=== PATIENT | female | born 1960 | race Hispanic/Latino ===

== ENCOUNTER 2017-01-19 15:47 | Emergency (ER) | payer OTHER, SELFPAY ==
[2017-01-19] MEDS ORDERED: Metoclopramide HCl 10 MG/2 ML VIAL ONE (17:27)
[2017-01-19] MEDS ORDERED: Dexamethasone 4 mg/ml Vial ONE (17:27)
[2017-01-19 17:28] LABS: Bilirubin Negative (Negative); Blood, Urine Negative (Negative); Glucose, Urine (Dipstick) Negative (Negative); Ketone, Urine Negative (Negative); Nitrite Negative (Negative); Protein, Urine (Dipstick) Negative (Neg-Trace); Urobilinogen 0.2 mg/dL (0.2-1.0)
[2017-01-19 17:30] LABS: Bacteria/HPF 4+ HPF (None Seen); Hyaline Casts/LPF 7-10 HYALINE CAST LPF (0-3 Hyaline); WBC/HPF 0-3 HPF (0-3)
[2017-01-19 17:38] LABS: Amphetamine Not Detected (NotDetected); Methadone Not Detected (NotDetected); Methamphetamine Not Detected (NotDetected)
[2017-01-19 17:41] LABS: RBC/HPF 0-3 HPF (0-3); Yeast-All Forms 1+ HPF (None Seen)
[2017-01-19 18:31] LABS: #Basophils 0.1 thou/uL (0.0-0.2); #Eosinphils 0.9 thou/uL (0.0-0.7); #Lymphocytes 4.9 thou/uL (1.20-3.40); #Monocytes 0.7 thou/uL (0.11-0.59); #Neutrophils 5.5 thou/uL (1.40-6.50); %Basophils 0.7 % (0.0-1.0); %Eosinophils 7.1 % (0.0-10.0); %Lymphocytes 40.7 % (21.0-51.0); Acetaminophen Less than 6.0 mcg/mL (10.0-30.0); Anisocytosis SLIGHT = 6-15 cells (100X) (0-5/hpf); Hematocrit 34.8 % (36.0-47.0); Mean Platelet Volume 7.1 fL (7.4-10.4); Red Blood Cell (RBC) Count 4.71 mill/uL (4.20-5.40); Salicylate Less than 8.0 mg/dL (15.0-30.0); White Blood Cell (WBC) Count 13.1 thou/uL (4.8-10.8)
[2017-01-19 18:35] LABS: Troponin I Less than 0.010 ng/mL (< 0.028)
[2017-01-19 18:47] LABS: ALT (SGPT) 8 U/L (8-55); AST (SGOT) 15 U/L (5-34); Alkaline Phosphatase 78 U/L (40-150); Anion Gap 11 mmol/L (10-20); BUN (Urea Nitrogen) 8 mg/dL (9.8-20.1); Bilirubin, Total 0.3 mg/dL (0.2-1.2); CK (CPK) 60 U/L (29-168); Calc. Creatinine Clearance 0 mL/min (70-130); Carbon Dioxide 26 mmol/L (22-29); Chloride 95 mmol/L (98-107); Estimated GFR-MDRD 85; Globulin 2.4 g/dL (2.4-3.5); Magnesium 1.8 mg/dL (1.6-2.6)
== END 2017-01-19 19:59 | disposition home or self-care (01) ==
LOC: ERS 15:47
DX: I10 Essential (primary) hypertension (principal); G89.29 Other chronic pain; F20.9 Schizophrenia, unspecified; F31.9 Bipolar disorder, unspecified; F43.10 Post-traumatic stress disorder, unspecified; F17.210 Nicotine dependence, cigarettes, uncomplicated; M32.9 Systemic lupus erythematosus, unspecified; M06.9 Rheumatoid arthritis, unspecified
CPT/HCPCS: 36415; 80053; 80306; 80307; 81003; 81015; 82550; 82553; 83735; 84443; 84484; 85025; 93005; 96361; 96365; 96375; 96376; J1100; J2270; J2765